=== PATIENT | male | born 1995 | race Caucasian/White ===

== ENCOUNTER 2024-12-06 10:13 | Emergency (ER) | payer OTHER ==
[~2024-12-06] VITALS: Ht 182.9 cm; Wt 90.7 kg
[2024-12-06] MEDS: IBUPROFEN 400 MG TABLET PO ONE (11:22)
[2024-12-06] MEDS ORDERED: IBUPROFEN 400 MG TABLET ONE (12:18)
[2024-12-06 12:22] VITALS: BP 124/78; TEMP 98.7; O2SAT 95
== END 2024-12-06 12:22 | disposition home or self-care (01) ==
LOC: ER 10:19
DX: M79.641 Pain in right hand (principal); M79.642 Pain in left hand; Z60.2 Problems related to living alone
CPT/HCPCS: 73130-TC